=== PATIENT | female | born 1965 | race Caucasian/White ===

== ENCOUNTER → 2021-11-07 | Day surgery (SDC) | payer SELFPAY ==
[~2021-11-07] MED LIST: FENTANYL CITRATE/PF 100MCG/2 ML INJ ONE; MIDAZOLAM HCL 2 MG/2 ML VIAL ONE; MOXIFLOXACIN HCL(OPTH) 3 ML BTL ONE; OR PHACO EYE KIT ONE; PHENYLEPHRINE HCL 10% 5 ML OPTH SOLN ONE; PREOP PHACO EYE KIT ONE; TROPICAMIDE 1% OPTH SOLN 15 ML BTL ONE
[2021-11-07 11:06] VITALS: BP 95/69
== END | disposition home or self-care (01) ==
LOC: OR 08:27
PROVIDERS: ATTEND Ophthalmology
DX: H52.01 Hypermetropia, right eye (principal); H52.4 Presbyopia; Z01.812 Encounter for preprocedural laboratory examination; Z20.822 Contact with and (suspected) exposure to COVID-19
CPT/HCPCS: 0223U; 36415; 66984; J2250; J3010

== ENCOUNTER → 2021-11-21 | Day surgery (SDC) | payer SELFPAY ==
[~2021-11-21] MED LIST changes: +CYCLOPENTOLATE HCL 1% OPTH SOLN 2ML BTL ONE; -FENTANYL CITRATE/PF 100MCG/2 ML INJ ONE; -MIDAZOLAM HCL 2 MG/2 ML VIAL ONE; -MOXIFLOXACIN HCL(OPTH) 3 ML BTL ONE; -PHENYLEPHRINE HCL 10% 5 ML OPTH SOLN ONE
[2021-11-21 11:28] VITALS: BP 119/91
== END | disposition home or self-care (01) ==
LOC: OR 08:45
PROVIDERS: ATTEND Ophthalmology
DX: H52.4 Presbyopia (principal); Z01.812 Encounter for preprocedural laboratory examination; Z20.822 Contact with and (suspected) exposure to COVID-19
CPT/HCPCS: 0223U; 36415; 66984; V2632